=== PATIENT | female | born 1950 | race Caucasian/White ===

== ENCOUNTER → 2019-06-25 | Outpatient (CLI) | payer MEDICARE ==
[~2019-06-25] MED LIST: GADOBENATE DIMEGLUMINE 1 ML IV ONE
[2019-06-25 13:37] LABS: BLOOD UREA NITROGEN 15 mg/dL (7-26); BUN/CREATININE RATIO 17 (6-25); CREATININE, SERUM 0.88 mg/dL (0.57-1.11); EST GLOMERULAR FILTRATION RATE > 60 ML/MIN (60-)
--- NOTE | 2019-06-25 15:14 | Diagnostic Imaging Report ---
History: Dizziness for 2 months Comparison studies: None Technique: Pre-contrast: Sagittal T2; axial T1-IR, MPGR, DWI, T2 FLAIR Post-contrast: axial and coronal T1. Intravenous contrast: 15 cc of MultiHance Findings: Scalp: No abnormal signal. No masses. Bone marrow: Normal in signal intensity. Brain sulci: Appropriate for age. Ventricles: Normal in size . No hydrocephalus. Extra-axial: No masses, fluid collections or hemorrhage. Parenchyma: Scattered small T-2/flair hyperintensities of the periventricular and deep white matter No masses, hemorrhage, acute or chronic vascular insults. No enhancing abnormalities. Suprasellar region: No abnormalities. Craniocervical junction: No abnormalities. Patent foramen magnum. No Chiari one malformation.. Vessels: Normal flow-voids in the arteries and sinuses. Incidental findings: None IMPRESSION: 1. No acute intracranial abnormality. 2. Mild chronic microvascular ischemic changes of the white matter. Signed by: DR Noman Freed M.D. on 06/25/2019 3:11 PM
== END ==
LOC: MRI 12:53
PROVIDERS: ATTEND Family Medicine
DX: R42 Dizziness and giddiness (principal)
CPT/HCPCS: 36415; 70553; 82565; 84520; 93880; A9577

== ENCOUNTER → 2022-05-04 | Outpatient (CLI) | payer MEDICARE | LOC: MRI 10:37 | PROVIDERS: ATTEND Family Medicine | DX: G51.0 Bell's palsy (principal); R51.9 Headache, unspecified | CPT/HCPCS: 70551 ==

== ENCOUNTER → 2022-06-09 | Outpatient (CLI) | payer MEDICARE ==
[2022-06-09 15:05] LABS: CREATININE, SERUM 0.82 mg/dL (0.57-1.11)
== END ==
LOC: MRI 13:53
PROVIDERS: ATTEND Family Medicine
DX: G51.0 Bell's palsy (principal); R51.9 Headache, unspecified
CPT/HCPCS: 36415; 70553; 82565; 84520